=== PATIENT | female | born 1965 | race Caucasian/White ===

== ENCOUNTER → 2021-04-17 | Outpatient (CLI) | payer BC ==
[2021-04-17 17:30] LABS: Ionized Calcium 5.5 mg/dL (4.5-5.3)
[2021-04-17 23:45] LABS: HCT 36.7 % (37.2-46.3); HGB 11.3 g/dL (12.0-15.0); MCH 26.3 pg (27.0-32.0); MCHC 30.8 g/dL (32.0-37.0); MCV 85.3 fL (80.0-97.0); Mean Platelet Volume 11.2 fL (9.5-12.2); Platelet Count 293 X 10*3/uL (140-440); RDW 14.6 % (11.5-14.5); WBC 5.63 X 10*3/uL (4.50-10.00)
[2021-04-18 15:37] LABS: % Iron Saturation 5.17 (12.00-45.00); ALT 15 U/L (8-44); AST 20 U/L (13-35); African American GFR (CKD) 95.5 (60.0-200.0); Alkaline Phosphatase 80 U/L (41-126); Calcium 10.1 mg/dL (8.7-10.3); Carbon Dioxide 21.3 mmol/L (21.6-31.8); Chloride 106 mmol/L (96-109); Ferritin 5.9 ng/mL (10.0-291.0); Glucose 76 mg/dL (70-110); Iron 20 ug/dL (50-170); Non-African American GFR(CKD) 82.4 (60.0-200.0); Phosphorus 4.1 mg/dL (2.4-5.1); Potassium 4.6 mmol/L (3.5-5.5); Sodium 140 mmol/L (135-145); Total Bilirubin 0.3 mg/dL (0.3-1.2); Total Iron Binding Capacity 387 ug/dL (228-460); Total Protein 6.8 g/dL (6.2-8.2)
[2021-04-21 14:29] LABS: Vitamin B12 >4000.0 pg/mL (211-911)
== END | disposition home or self-care (01) ==
LOC: LABWHC1 16:37
PROVIDERS: ATTEND Internal Medicine
DX: E34.9 Endocrine disorder, unspecified (principal); E55.9 Vitamin D deficiency, unspecified; E53.8 Deficiency of other specified B group vitamins; D64.9 Anemia, unspecified
CPT/HCPCS: 36415; 80053; 82306; 82330; 82607; 82728; 83540; 83550; 83970; 84100; 85027